=== PATIENT | female | born 1975 | race Caucasian/White ===

== ENCOUNTER 2018-11-26 16:30 | Emergency (ER) | payer MEDICAID, OTHER ==
[~2018-11-26] VITALS: Ht 160 cm; Wt 94.8 kg
[~2018-11-26 16:30] MED LIST: ACET120S19 RC; ACET1TAB33 PO; ACET325T21 PO; ACET650S PO; ALPR0.25 PO; BACL10TA PO; BISA10SU55 RC; CEPH500C PO; DEXT237L PO; DULO60CA6 PO; ENOX40DI3 SQ; ESOM40CA PO; GLUC1KIT IJ; HYDR-2761 PO; HYDR-3164 PO; INSU100C4 SQ; INSU100I17 SQ; INSU100V13 SQ; LEVE500S9 PO; LEVO25TA4 PO; MAG354OR3 PO; MAGN400O7 PO; METF500T16 PO; METR500T PO; NAPR-514 PO; NYST15OI TP; OXYC1TAB22 PO; PANT40TA77 PO; PREG150C PO; VALS160T3 PO; VALS1TAB8 PO; [UNRECOGNIZED DRUG - CODE] IV; [UNRECOGNIZED DRUG - CODE] TD
[2018-11-26] MEDS ORDERED: predniSONE 10 MG TABLET PO ONE (17:30)
[2018-11-26] MEDS ORDERED: NAPROXEN 500 MG TABLET PO STA (17:30)
[2018-11-26] MEDS ORDERED: CYCLOBENZAPRINE 10 MG TABLET. PO ONE (17:30)
--- NOTE | 2018-11-26 17:32 | RAD ---
Three-view left hand radiographs 11/26/2018 CLINICAL HISTORY: Fall with injury to the left hand. PA, lateral and oblique digital radiographs of the left hand were obtained. On the lateral radiograph of the left hand, a 3 mm bony density is seen posterior to the DIP joint of what appears to be the left fourth finger. This could represent an avulsion fracture of the dorsal plate of the proximal metaphysis of the distal phalanx of the left fourth finger of uncertain age. Clinical correlation with the patient's injury is recommended. No additional fracture or dislocation of the left hand is seen. No radiopaque foreign body is seen. Mild degenerative changes are seen scattered throughout the interphalangeal joints of the left hand. IMPRESSION: Small bony density is seen posterior to the DIP joint of the left fourth finger which could represent an avulsion fracture of uncertain age as discussed above. Clinical correlation with patient's injury is recommended. Electronically signed by: Alex Palacios MD (11/26/2018 5:29 PM) [facility]
[2018-11-26] MEDS ORDERED: DICL50TA4 PO (17:47)
[2018-11-26] MEDS ORDERED: METH4TAB2 PO (17:47)
--- NOTE | 2018-11-26 17:48 | PHYS DOC ---
Past Medical History Past Medical History: Anxiety, Asthma, Bronchitis, Diabetes-Type I, Hyper tension, Other Additional Past Medical Histor: CHRONIC PAIN, CHRONIC MUSCLE SPASMS, DEPRESSION, ANXIETY Past Surgical History: No Surgical History, Other Additional Past Surgical Histo: drainage of brain abscess Alcohol Use: Rarely Drug Use: None Adult General Chief Complaint Chief Complaint: HAND PROBLEM HPI HPI Patient is a 43 year old female who presents complaining of 7 out of 10 left wrist pain radiating to the left that began 3 days ago after she slipped and fell in the bathroom. She states she used her left hand to grabbed the handle bar in the bathroom when she was falling. Denies any loss of consciousness. Describes the pain as throbbing and constant. She states the pain is worsened on touching her left hand denies any scaphoid pain. Review of Systems Review of Systems Constitutional: Denies fever or chills [] Musculoskeletal: Reports left wrist pain, left hand pain Integument: Denies rash or skin lesions [] Neurologic: Denies headache, focal weakness or sensory changes [] All other systems were reviewed and found to be within normal limits, except as documented in this note. Current Medications Current Medications Current Medications Medications (Trade) Dose Ordered Sig/Michael Start Time Stop Time Status Last Admin Dose Admin Cyclobenzaprine HCl (Flexeril) 10 mg 1X ONCE 11/26/18 17:30 11/26/18 17:34 DC 11/26/18 17:48 10 MG Naproxen (Naprosyn) 500 mg 1X STAT 11/26/18 17:30 11/26/18 17:34 DC 11/26/18 17:49 500 MG Prednisone (Prednisone) 50 mg 1X ONCE 11/26/18 17:30 11/26/18 17:34 DC 11/26/18 17:49 50 MG Allergies Allergies Allergies Coded Allergies Type Severity Reaction Last Updated Verified duloxetine Allergy Intermediate 11/16/14 No latex Allergy Intermediate RASH 02/27/14 Yes hydrocodone Adverse Reaction Intermediate HYPERACTIVITY 11/16/14 No propoxyphene Adverse Reaction Intermediate HYPERACTIVITY 02/27/14 Yes Physical Exam Physical Exam Constitutional: Well developed, well nourished, no acute distress, non-toxic appearance. [] Skin: Warm, dry, no erythema, no rash. [] Back: No tenderness, no CVA tenderness. [] Extremities: Left wrist and left hand with no obvious deformity. Mild soft tissue swelling noted on the left dorsal hand. Tenderness diffusely on the left dorsal hand. No scaphoid tenderness. Full passive as well as active range of motion to the left hand and wrist. +2 left radial pulse. Adequate radial sensation to the left. Cap refill less than 2 seconds the left fingers. Neurologic: Alert and oriented X 3, normal motor function, normal sensory function, no focal deficits noted. [] Psychologic: Affect normal, judgement normal, mood normal. [] Current Patient Data Vital Signs Vital Signs Date Time Temp Pulse Resp B/P (MAP) Pulse Ox O2 Delivery O2 Flow Rate FiO2 11/26/18 17:23 98.1 101 18 162/94 (116) Room Air 98.1 EKG EKG [] Radiology/Procedures Radiology/Procedures [] Course & Med Decision Making Course & Med Decision Making Pertinent Labs and Imaging studies reviewed. (See chart for details) This is a 43-year-old male patient presented to the ED today with left hand and left wrist pain after falling 3 days ago. Left hand x-ray interpreted by Dr. Cuellar were negative for any. Domingo bandage applied to the left hand and wrist by me. Neurovascular exam is intact. Ice elevation encouraged. Follow-up with orthopedic doctor. Discharged with diclofenac and Medrol Dosepak. Dragon Disclaimer Dragon Disclaimer This electronic medical record was generated, in whole or in part, using a voice recognition dictation system. Departure Departure Impression: Primary Impression: Left wrist sprain Additional Impressions: Sprain of left hand Fall Disposition: 01 HOME, SELF-CARE Condition: STABLE Referrals: ARIES CANCHOLA MD (PCP) RADHA ESPINAL II, MD follow up with your doctor in 1 week or the provided Orthopedic doctor. Patient Instructions: Joint Sprain Additional Instructions: You have left hand and wrist sprains. Please wear the domingo bandage on as tolerated and needed. Please ice and elevate the extremity. Follow-up with your own doctor the provided orthopedic doctor in 1-2 weeks Scripts Diclofenac Sodium (DICLOFENAC SODIUM) 50 Mg Tablet.dr 1 TAB PO BID, #12 TAB 0 Refills Prov: MUTUNGA,ESAU MASONRY INSTRUCTOR 11/26/18 Methylprednisolone (MEDROL) 4 Mg Tab.ds.pk 1 PKG PO UD, #1 PKG Prov: MUTUNGA,ESAU MASONRY INSTRUCTOR 11/26/18 Problem Qualifiers Primary Impression: Left wrist sprain Encounter type: initial encounter Qualified Codes: S63.502A - Unspecified sprain of left wrist, initial encounter Additional Impressions: Sprain of left hand Encounter type: initial encounter Qualified Codes: S63.92XA - Sprain of unspecified part of left wrist and hand, initial encounter Fall Encounter type: initial encounter Qualified Codes: W19.XXXA - Unspecified fall, initial encounter ESAU MARTINEZ [employer]ONRY INSTRUCTOR Nov 26, 2018 17:48
[2018-11-26 17:58] VITALS: BP 162/94
== END 2018-11-26 18:15 | disposition home or self-care (01) ==
LOC: ER 16:30
DX: S63.502A Unspecified sprain of left wrist, initial encounter (principal); S63.92XA Sprain of unspecified part of left wrist and hand, initial encounter; I10 Essential (primary) hypertension; E10.9 Type 1 diabetes mellitus without complications; J45.909 Unspecified asthma, uncomplicated; G89.29 Other chronic pain; Z91.040 Latex allergy status; Z88.5 Allergy status to narcotic agent; Z88.8 Allergy status to other drugs, medicaments and biological substances; W01.0XXA Fall on same level from slipping, tripping and stumbling without subsequent striking against object, initial encounter; Y93.89 Activity, other specified; Y92.091 Bathroom in other non-institutional residence as the place of occurrence of the external cause; Y99.8 Other external cause status
CPT/HCPCS: 73130; 99284; J7512